=== PATIENT | female | born 1965 | race Caucasian/White ===

== ENCOUNTER 2017-04-08 10:09 | Inpatient (IN) | payer OTHER ==
[2017-04-05 14:05] VITALS: BP 146/88
[2017-04-05 14:40] LABS: HEMATOCRIT 43.8 % (34.6-47.8); HEMOGLOBIN 14.5 g/dL (11.7-16.4); WHITE BLOOD COUNT 6.2 x10^3/uL (3.4-10)
[2017-04-05 14:50] LABS: BLOOD UREA NITROGEN 13 mg/dL (7-18)
[~2017-04-08] VITALS: Ht 161.3 cm; Wt 71.0 kg
[~2017-04-08 10:09] MED LIST: ALPR-475 PO; CALC1CAP8 PO; CEFAZOLIN 1,000 MG ONE; DEXAMETHASONE 4 MG/ML, 1ML ONE; FENTANYL PF 250 MCG/5ML ONE; HYDR-3237 PO; MIDAZOLAM 1 MG/ML, 2ML ONE; MULT-224 PO; ONDANSETRON 2MG/ML, 2ML ONE; PROPOFOL 10 MG/ML, 20ML ONE; ROCURONIUM 10 MG/ML ONE; SUCCINYLCHOLINE 20 MG/ML, 10ML ONE; VITA1TAB19 PO
[2017-04-08] MEDS ORDERED: VANCOMYCIN PER PHARMACY MC PRN (10:30)
[2017-04-08] MEDS ORDERED: LACTATED RINGERS 1,000 ML IV SCH (10:46)
[2017-04-08] MEDS ORDERED: VANCOMYCIN 1,300 MG in SODIUM CHLORIDE 0.9% 250 ML IV ONE (11:00)
[2017-04-08] MEDS ORDERED: KETOROLAC 60 MG/2 ML ONE (11:49)
[2017-04-08] MEDS ORDERED: VANCOMYCIN 1,000 MG ONE (11:50)
[2017-04-08] MEDS ORDERED: EPINEPHRINE 1 MG/ML, 1ML ONE (11:50)
[2017-04-08] MEDS ORDERED: TRANEXAMIC ACID 100 MG/ML, 10ML ONE ×2 (11:50→13:33)
[2017-04-08] MEDS ORDERED: morphine SULFATE 10 MG/ML, 1ML ONE (11:50)
[2017-04-08] MEDS ORDERED: ROPIvacaine/PF 0.2%, 20 ML ONE ×2 (11:50→12:38)
[2017-04-08] MEDS ORDERED: morphine SULFATE/PF 1 MG/ML, 10ML ONE (12:04)
[2017-04-08] MEDS ORDERED: LABETALOL 5MG/ML, 20ML ONE (12:17)
[2017-04-08] MEDS ORDERED: hydrALAzine 20 MG/ML, 1ML ONE (12:17)
[2017-04-08] MEDS ORDERED: ACETAMINOPHEN 325 MG TABLET PO PRN ×2 (12:30→17:00)
[2017-04-08] MEDS ORDERED: OXYcodone 5 MG/5 ML ORAL.SOL UDC PO PRN (12:30)
[2017-04-08] MEDS ORDERED: PROMETHAZINE 25 MG/ML, 1ML IV PRN (12:30)
[2017-04-08] MEDS ORDERED: ONDANSETRON 2MG/ML, 2ML IVPush PRN ×2 (12:30→17:00)
[2017-04-08] MEDS ORDERED: HYDROcodone/APAP 7.5-325MG/15ML UDC PO PRN (12:30)
[2017-04-08] MEDS ORDERED: MIDAZOLAM 1 MG/ML, 2ML ONE (14:25)
[2017-04-08] MEDS ORDERED: FENTANYL PF 100 MCG/2ML ONE (14:25)
[2017-04-08] MEDS ORDERED: HYDROmorphone 1 MG/ML, 1ML ONE ×2 (14:26→14:56)
[2017-04-08] MEDS: FENTANYL PF 100 MCG/2ML IV PRN ×2 (14:27→14:45)
[2017-04-08] MEDS: HYDROmorphone 1 MG/ML, 1ML IV PRN ×5 (14:35→21:43)
[2017-04-08] MEDS ORDERED: MIDAZOLAM 1 MG/ML, 2ML IV PRN (15:00)
[2017-04-08] MEDS ORDERED: HYDROcodone/APAP 7.5-325MG/15ML UDC ONE (15:17)
[2017-04-08] MEDS ORDERED: DIPHENHYDRAMINE 25 MG CAPSULE PO PRN (17:00)
[2017-04-08] MEDS ORDERED: ONDANSETRON ODT 4 MG PO PRN (17:00)
[2017-04-08] MEDS ORDERED: CEFAZOLIN PMX 2GM/50ML 50 ML IVPB SCH (17:00)
[2017-04-08] MEDS ORDERED: SENNA/DOCUSATE TABLET PO PRN (17:00)
[2017-04-08] MEDS ORDERED: OXYcodone IR 5MG TABLET PO PRN (17:00)
[2017-04-08] MEDS: D5%-0.45% NACL 1,000 ML IV SCH (18:22)
[2017-04-08] MEDS: HYDROcodone/APAP 10/325 MG TABLET PO PRN (19:38)
[2017-04-08 20:01] VITALS: BP 133/82
[2017-04-08] MEDS: DOCUSATE 100 MG CAPSULE PO SCH (20:40)
[2017-04-08] MEDS: SODIUM CHLORIDE FLUSH 10ML SYR IVF SCH (21:00)
[2017-04-08] MEDS ORDERED: CEFAZOLIN 2,000 MG in DEXTROSE 5% 50 ML IVPB SCH (21:30)
[2017-04-09 00:25] VITALS: BP 126/74
[2017-04-09] MEDS: HYDROcodone/APAP 10/325 MG TABLET PO PRN ×3 (00:46→11:50)
[2017-04-09] MEDS: D5%-0.45% NACL 1,000 ML IV SCH ×2 (03:00→12:24)
[2017-04-09 04:00] VITALS: BP 124/72
[2017-04-09] MEDS ORDERED: ASPIRIN 325 MG TABLET EC PO SCH (06:00)
[2017-04-09 08:07] VITALS: BP 130/73
[2017-04-09] MEDS: HYDROmorphone 1 MG/ML, 1ML IV PRN ×2 (09:00→13:43)
[2017-04-09] MEDS: SODIUM CHLORIDE FLUSH 10ML SYR IVF SCH (09:00)
[2017-04-09] MEDS: DOCUSATE 100 MG CAPSULE PO SCH (09:00)
[2017-04-09 14:07] VITALS: BP 135/79
[2017-04-09] MEDS ORDERED: HYDROcodone/APAP 10/325 MG TABLET ONE (15:53)
[2017-04-09] MEDS ORDERED: HYDR-3307 PO (16:52)
[2017-04-09] MEDS ORDERED: ONDA4TAB7 PO (16:53)
[2017-04-09] MEDS ORDERED: ASPI-650 PO (16:54)
[2017-04-09] MEDS ORDERED: KETOROLAC 30 MG/1 ML IV SCH (17:00)
[2017-04-09] MEDS ORDERED: HYDROcodone/APAP 10/325 MG TABLET PO PRN (17:00)
[2017-04-09 17:28] VITALS: BP 120/72
== END 2017-04-09 17:30 | disposition home or self-care (01) | DRG 470 ==
LOC: ORIP 10:09 → 4NOR 15:54
PROVIDERS: ADMIT Orthopaedic Surgery; ATTEND Orthopaedic Surgery
PROC: 0SRD069 Replacement of Left Knee Joint with Oxidized Zirconium on Polyethylene Synthetic Substitute, Cemented, Open Approach (ICD-10-PCS; principal; 2017-04-08 12:30)
DX: M17.12 Unilateral primary osteoarthritis, left knee (principal); J45.909 Unspecified asthma, uncomplicated; Z88.8 Allergy status to other drugs, medicaments and biological substances; Z90.710 Acquired absence of both cervix and uterus; Z90.89 Acquired absence of other organs; Z90.721 Acquired absence of ovaries, unilateral
CPT/HCPCS: 36415; 80048; 81001; 83036; 85014; 85018; 85025; 85610; 85730; 87081; C1713; J0171; J0690; J1100; J1170; J1885; J2250; J2274; J2405; J2704; J2795; J3010; J3370; C1776; J0330; J0360; J2270; J7050; J7120

== ENCOUNTER 2017-04-14 23:26 | Emergency (ER) | payer OTHER ==
[~2017-04-14] VITALS: Ht 160 cm; Wt 74.2 kg
[~2017-04-14 23:26] MED LIST changes: +ASPI-650 PO; -CEFAZOLIN 1,000 MG ONE; -DEXAMETHASONE 4 MG/ML, 1ML ONE; -FENTANYL PF 250 MCG/5ML ONE; +HYDR-3307 PO; -MIDAZOLAM 1 MG/ML, 2ML ONE; +ONDA4TAB7 PO; -ONDANSETRON 2MG/ML, 2ML ONE; -PROPOFOL 10 MG/ML, 20ML ONE; -ROCURONIUM 10 MG/ML ONE; -SUCCINYLCHOLINE 20 MG/ML, 10ML ONE
[2017-04-15 00:29] LABS: HEMATOCRIT 38.8 % (34.6-47.8); HEMOGLOBIN 12.9 g/dL (11.7-16.4); WHITE BLOOD COUNT 7.4 x10^3/uL (3.4-10)
[2017-04-15] MEDS ORDERED: ONDANSETRON 2MG/ML, 2ML IVPush ONE (00:30)
[2017-04-15] MEDS ORDERED: SODIUM CHLORIDE 0.9% 1,000ML IVBOLUS ONE (00:30)
[2017-04-15] MEDS ORDERED: ONDANSETRON 2MG/ML, 2ML ONE (00:31)
[2017-04-15] MEDS ORDERED: morphine SULFATE 10 MG/ML, 1ML ONE ×2 (00:31→01:47)
[2017-04-15] MEDS: MORPHINE SULFATE 4 MG/ML, 1ML IVPush PRN ×2 (00:35→01:51)
[2017-04-15 00:41] LABS: BLOOD UREA NITROGEN 26 mg/dL (7-18)
[2017-04-15 04:12] VITALS: BP 148/84
== END 2017-04-15 04:16 | disposition home or self-care (01) ==
LOC: ED 04-15 01:26
DX: M25.562 Pain in left knee (principal); M25.522 Pain in left elbow; Z96.652 Presence of left artificial knee joint; Z98.84 Bariatric surgery status
CPT/HCPCS: 36415; 73080; 73560; 80048; 82040; 85025; 85651; 86140; 93971; 96361; 96374; 96375; 96376; 99285; J2405; J7030